=== PATIENT | female | born 2000 | race Caucasian/White ===

== ENCOUNTER 2024-09-18 00:41 | Emergency (ER) | payer BC, SELFPAY ==
[2024-09-18 00:43] VITALS: BP 118/75
[2024-09-18 01:15] LABS: % Basophils 0.3 % (0-2); % Eosinophils 0.6 % (0-6); % Immature Granulocytes 0.5 % (0-0.5); % Monocytes 4.8 % (1.7-9.3); % Neutrophils 86.8 % (42.2-75.2); Absolute Basophils 0.1 10^3/uL (0-0.2); Absolute Eosinophils 0.1 10^3/uL (0-0.7); Absolute Immature Granulocytes 0.1 10^3/uL (0-0.05); Absolute Lymphocytes 1.4 10^3/uL (1.2-3.4); Absolute Neutrophils 17.6 10^3/uL (1.4-6.5); Hematocrit 46.1 % (37.0-47.0); Hemoglobin 15.6 g/dL (12.0-16.0); Mean Corp Hgb Conc. 33.8 g/dL (33.0-37.0); Mean Corpuscular Hgb 27.4 pg (27.0-31.0); Mean Corpuscular Volume 80.9 fL (81.0-99.0); Mean Platelet Volume 10.2 fL (7.4-10.4); Nucleated Red Blood Cells % 0 %; Platelet Count 322 10^3/uL (130-400); Red Cell Dist. Width 12.8 % (11.5-14.5); White Blood Cell Count 20.3 10^3/uL (4.8-10.8)
[2024-09-18 01:21] LABS: ALT (SGPT) 20 U/L (0-35); AST (SGOT) 20 U/L (14-36); Albumin 4.7 g/dl (3.5-5.0); Alkaline Phosphatase 73 U/L (38-126); Blood Urea Nitrogen 16 mg/dl (7-17); Calcium 9.8 mg/dl (8.4-10.2); Carbon Dioxide 21 mmol/L (22-30); Chloride 107 mmol/L (98-107); Glucose 122 mg/dl (70-99); Potassium 4.2 mmol/L (3.5-5.1); Sodium 140 mmol/L (135-145); Total Bilirubin 0.9 mg/dl (0.2-1.3); Total Protein 7.4 g/dl (6.3-8.2); eGFR > 60.00
[2024-09-18 01:25] LABS: HCG, Serum Qualitative Screen Negative
[2024-09-18 01:42] VITALS: BMI 47.0
[2024-09-18] MEDS: NSS 1000 IV (02:23)
[2024-09-18] MEDS: ZOFRAN 4 MG IV ×2 (02:23→05:27)
[2024-09-18] MEDS: OMNIPAQUE 50 ML PO (02:36)
--- NOTE | 2024-09-18 03:26 | ED.GENMED ---
History of Present Illness
General
Chief Complaint: Abdominal Symptoms
Source: patient
Exam Limitations: none
Time Seen by Provider: 09/18/24 01:56
Nursing documentation reviewed up to this point in time: agreed with
History of Present Illness
History of Present Illness:
24-year-old female presenting to the emergency department today with concerns of persistent vomiting and diarrhea over the past few hours. Intermittent generalized abdominal pain. Also is on Wegovy. Denies any chest pain shortness of breath.
Does have a history of gastric sleeve.
Past History
Past History
ED Past Medical History: GERD (Hiatal hernia)
ED Past Surgical History: Tonsilectomy and Other (Gastric sleeve)
Social History
Tobacco: Non-smoker
Personal: Single
Living: with family
Employment: Student
Family History
Family History: Other (Noncontributory)
Review of Systems
Review of Systems
Allergies reviewed?: Yes
All Other Systems: ROS reviewed and negative except as documented in HPI and ROS
Phy Exam
Physical Exam
Physical Exam:
GENERAL: Alert , in no apparent distress
EYE: pupils equal and reactive
NECK: Supple, no significant adenopathy.
ENT: o/p clr, mmm.
CARDIAC: Regular rate and rhythm .
LUNGS: Clear breath sounds bilaterally, no acute respiratory distress, no wheezes/rales/rhonchi
ABDOMEN: Vague discomfort throughout the abdomen maximal to the lower abdomen
NEUROLOGICAL: Alert and oriented, no focal neuro deficits
SKIN: Warm and dry, skin intact.
MUSCULOSKELETAL: No edema, well perfused.
PSYCH: Normal and appropriate interaction.
Course
Orders/Labs/Results
Orders:
Orders
09/18/24 00:53
Test Result ONCE
09/18/24 00:57
Complete Blood Count/With Diff Urgent
Comprehensive Metabolic Panel Urgent
HCG, Serum Qualitative Screen Urgent
09/18/24 02:15
CT Abd/pel W Iv And Oral Contr Urgent
Comment:
Reason For Exam: diffuse abd pain hx of gastric sleeve
0.9% Sodium Chloride 1000 ml [Nss] 1,000 ml IV BOLUS
Iohexol [Omnipaque] See Protocol PO NOW STA
Ondansetron Injectable [Zofran] 4 mg IV NOW STA
09/18/24 02:16
Ondansetron Injectable [Zofran] 4 mg .ROUTE .STK-MED ONE
09/18/24 05:23
Ondansetron Injectable [Zofran] 4 mg IV NOW STA
Abnormal Lab Results
09/18/24
00:57
WBC 20.3 H 10^3/uL
(4.8-10.8)
RBC 5.70 H 10^6/uL
(4.20-5.40)
MCV 80.9 L fL
(81.0-99.0)
Abs Immat Gran (auto) 0.1 H 10^3/uL
(0-0.05)
Absolute Neuts (auto) 17.6 H 10^3/uL
(1.4-6.5)
Absolute Monos (auto) 1.0 H 10^3/uL
(0.1-0.6)
Neutrophils % 86.8 H %
(42.2-75.2)
Lymphocytes % 7.0 L %
(20.5-51.1)
Carbon Dioxide 21 L mmol/L
(22-30)
Glucose 122 H mg/dl
(70-99)
09/18/24 00:57
09/18/24 00:57
Vital Signs
Initial and Last Documented VS:
Initial Vital Signs
Temp Pulse Resp BP Pulse Ox
98.3 F 72 22 118/75 97
09/18/24 00:43 09/18/24 00:43 09/18/24 00:43 09/18/24 00:43 09/18/24 00:43
Last Documented Vital Signs
Temp Pulse Resp BP Pulse Ox
98.3 F 75 14 137/61 97
09/18/24 00:43 09/18/24 03:58 09/18/24 03:58 09/18/24 03:58 09/18/24 03:58
MDM/Problems Addressed
MDM/Problems Addressed:
24-year-old female presenting to the emergency department with concerns of vomiting diarrhea over the past few hours with generalized abdominal pain. Does have a history of gastric sleeve. Concerning this patient was started on oral contrast for
again reproducible pain throughout the abdomen. Patient given Zofran with significant improvement of symptoms. CT scan was obtained concerning the patient's significant discomfort to palpation of her abdomen. CT scan showed enteritis but no signs
of surgical pathology. Plan for symptomatic treatment at home otherwise stable for discharge at this time.
*Critical Care Note
Total Time (30-74mins, 75-104mins- exclusive of procedures): Not Applicable
ED Attending Note
-
Portions of this chart may have been created with voice recognition software.� Occasional wrong word or��sound alike� substitutions may have occurred due to the inherent limitations of voice recognition software.
Discharge Plan
Departure
Patient Disposition: Home (Routine Discharge)
Date of Disposition: 09/18/24
Time of Disposition: 05:24
Patient with high blood pressure during this ER visit?: No
Condition: Good
Covid-19: Not Applicable
Discharge Problem:
Enteritis
Instructions: Nausea and Vomiting, Adult (DC)
Prescriptions:
New
ondansetron 4 mg tablet,disintegrating
4 mg PO Q6H PRN (Reason: nausea and vomiting) Qty: 5 0RF
No Action
Wegovy
0.5 mg SC QWEEK
Referrals:
UNKNOWN - PT DOES,NOT KNOW [Family Provider] -
Stand Alone Forms: Return to Work
Activity Restrictions/Additional Instructions:
You came to the emergency department today with concerns of nausea vomiting diarrhea. Here you have a reassuring assessment. Please take the prescribed medications. Return for any worsening, new or concerning symptoms.
Interventions
Interventions:
*Risk Screen - Suicide Last Done: 09/18/24 00:43
*General Assessment Last Done: 09/18/24 01:37
*Neglect/Abuse Screening Last Done: 09/18/24 01:43
*ED- Fall Risk Assessment Last Done: 09/18/24 01:42
*ED COVID-19 Vaccine History Last Done: 09/18/24 01:42
HC-Yomkme-Gduzininyp Assessment Last Done: 09/18/24 01:39
Discharge Date and Time
Print Language: GAMBIAN
[2024-09-18 03:58] VITALS: BP 137/61
[2024-09-18 05:42] VITALS: BP 116/64
== END 2024-09-18 05:44 | disposition home or self-care (01) ==
LOC: EMR 00:41
PROVIDERS: Student in an Organized Health Care Education/Training Program; EMERGENCY PHYSICIAN Emergency Medicine
DX: K52.9 Noninfective gastroenteritis and colitis, unspecified (principal)
CPT/HCPCS: 99285; 96374; 96375; 74177; 80053; 84703; 85025; Q9967